=== PATIENT | male | born 1965 | race Caucasian/White ===

== ENCOUNTER 2019-02-08 07:49 | Day surgery (SDC) | payer BC ==
--- NOTE | 2019-02-07 13:34 | RAD REPORT ---
EXAM DESCRIPTION: RAD - Chest Pa And Lat (2 Views) - 02/07/2019 1:09 pm CLINICAL HISTORY: preop, patient pending cholecystectomy COMPARISON: December 2014 TECHNIQUE: PA and lateral views of the chest were obtained. FINDINGS: The lungs are clear. Interstitial markings are minimally prominent. Pattern is stable lazaro k to 2015. Heart size is normal and central vasculature is within normal limits. No pleural effusion or pneumothorax seen. No acute bony finding noted. No aortic abnormality. IMPRESSION: No acute cardiopulmonary process. No significant change from the 2015 comparison.
[2019-02-07 13:57] LABS: Absolute Lymphocytes (CBC) 1.4 K/uL (0.7-4.9); Basophils % 0.3 % (0-1.3); Hematocrit 36.4 % (39.6-49.0); Lymphocytes % 30.2 % (15.3-44.8); MPV 9.4 fL (7.6-11.3)
[2019-02-07 14:03] LABS: Potassium 4.3 mmol/L (3.5-5.1)
[2019-02-07 14:23] LABS: Albumin 3.6 g/dL (3.4-5.0); Bilirubin Direct 0.1 mg/dL (0-0.2); Bilirubin Total 0.5 mg/dL (0.2-1.0); Protein, Total 7.2 g/dL (6.4-8.2)
--- NOTE | 2019-02-07 15:08 | EKG ---
Test Date: 2019-02-07 Test Time: 12:34:42 Stained Glass Joiner: PEE MEASUREMENT RESULTS: Intervals: Rate: 68 ID: [id number] QRSD: 100 QT: 394 QTc: 418 [place]: P: 42 ID: [id number] QRS: 12 T: 18 INTERPRETIVE STATEMENTS: Normal sinus rhythm Normal ECG Compared to ECG 08/14/1991 00:32:00 Sinus bradycardia no longer present Sinus arrhythmia no longer present Electronically Signed On 02-07-19 15:07:28 CELL TESTER by Chris Grigsby
[~2019-02-08 07:49] MED LIST: CEFOXITIN/SWI 1gm 1 GM/10 ML SYR IVP SCH
[2019-02-08] MEDS ORDERED: Ringers Lactate 1,000 ML IV ONE ×2 (08:07→09:47)
[2019-02-08] MEDS ORDERED: CEFOXITIN/SWI 1gm 1 GM/10 ML SYR ONE (08:07)
[2019-02-08] MEDS ORDERED: PROPOFOL 200 MG/20 ML VIAL IV ONE (08:18)
[2019-02-08] MEDS ORDERED: GLYCOPYRROLATE 0.2 MG/ML SYR ONE ×3 (08:18→09:55)
[2019-02-08] MEDS ORDERED: ROCURONIUM 50 MG/5 ML VIAL IV ONE (08:18)
[2019-02-08] MEDS ORDERED: MIDAZOLAM HCL 2 MG/2 ML INJ ONE (08:19)
[2019-02-08] MEDS ORDERED: dexAMETHasone 10 MG/ML VIAL ONE (08:19)
[2019-02-08] MEDS ORDERED: FENTANYL CITR 250 MCG/5 ML ONE (08:19)
[2019-02-08] MEDS ORDERED: LIDOCAINE 2% MPF 5 ML VIAL ONE (08:19)
[2019-02-08] MEDS ORDERED: EPHEDRINE SULF 50 MG/ML VIAL ONE (09:39)
[2019-02-08] MEDS ORDERED: Phenylephrine HCl 10 MG/ML 1 ML VIAL ONE (09:43)
[2019-02-08] MEDS ORDERED: NEOSTIGMINE 1 MG/ML -5 ML ONE (09:57)
[2019-02-08] MEDS ORDERED: KETOROLAC 30 MG/ML INJ ONE (09:58)
[2019-02-08] MEDS ORDERED: Mastisol Adhesive Liq ONE (10:04)
[2019-02-08] MEDS ORDERED: MORPHINE 4 MG/ML SYR ONE (10:58)
[2019-02-08] MEDS ORDERED: HYDROCODONE/APAP 7.5/325 MG TAB ONE (11:41)
[2019-02-08 13:43] VITALS: BP 124/67; TEMP 97.2; O2SAT 100
--- NOTE | 2019-02-08 21:43 | OP ---
Date of Procedure: 02/08/2019 Surgeon: Fernando Strong MD Testing Director: FERNANDO Morales. Preoperative Diagnosis: Symptomatic cholelithiasis. Postoperative Diagnosis: Symptomatic cholelithiasis. Procedure: Laparoscopic cholecystectomy. Estimated Blood Loss: Minimal. Specimen: Gallbladder. Findings: As above. Anesthesia: General. Complications: None. Disposition: The patient tolerated the procedure in stable condition, taken to Recovery in good gene ral condition Procedure In Detail: The patient was brought to the OR and placed in supine position. General anest hesia was begun. The patient was prepped and draped in usual sterile fashion. Marcaine 0.5% was inf iltrated locally. A 15 blade was used to make a 1 cm infraumbilical midline incision. Subcutaneous tissue was divided. The fascia was identified and divided. A #1 Vicryl stay suture was placed. Per itoneal cavity was entered with blunt dissection. A 12 mm trocar was placed into the peritoneal cavi ty under direct vision. Pneumoperitoneum was established. Then, three 5 mm trocars were placed; 1 i n the epigastrium just to the right of midline, 2 in the right subcostal region. Laparoscopy reveale d chronic inflammation of the gallbladder. Fundus retracted superiorly. Infundibulum was identified and retracted inferolaterally. Cystic duct and cystic artery were clearly identified with blunt dis section. Clips were placed. Both structures were divided. Cautery was used to remove the gallbladd er from the liver bed. Bleeding on the liver bed was controlled with cautery. The gallbladder was r etrieved through the umbilicus via an EndoCatch bag. Right upper quadrant was irrigated. Effluent w as clear. No evidence of bleeding or bile leakage appreciated. Subsequently, all trocars were remov ed under direct vision. Stay sutures were tied to each other to reapproximate the fascial defect. S ubcutaneous wounds were irrigated, bleeding controlled with cautery. 3-0 chromic used to approximate the subcutaneous tissue and close the skin. Sterile dressing was applied. Patient was awakened fred en to Recovery in good general condition. Discharge Note: The patient will go to day surgery and home when stable. Disposition: Home. Condition: Stable. Discharge Instructions: Resume home medications and diet. Activity as tolerated. No heavy lifting. Remove outer dressing in 2 days. Shower. Keep wound clean and dry. Keep Steri-Strips on at all t rajinder. Incentive spirometry was ordered. Tylenol No. 3 one tablet p.o. q.4 p.r.n. pain. /MODL Voice ID: [id number] Report ID: [id number]
== END 2019-02-08 13:00 | disposition home or self-care (01) ==
LOC: OR 07:49
PROVIDERS: ATTEND Surgery
PROC: 0FT44ZZ Resection of Gallbladder, Percutaneous Endoscopic Approach (ICD-10-PCS; principal; 2019-02-08 09:00)
DX: K80.10 Calculus of gallbladder with chronic cholecystitis without obstruction (principal)
CPT/HCPCS: 93005; 85025; 80048; 36415; 82150; 80076; 88304; 71046; 47562; J2704; J2370; J2250; J3010; J1100; J2710; J7120 ×2